=== PATIENT | male | born 1965 | race Two or more races ===

== ENCOUNTER → 2017-09-03 | Day surgery (SDC) | payer OTHER ==
[~2017-09-03] MED LIST: PROPOFOL 40 ML IV
[2017-09-03] MEDS: IV RINGERS,LACTATED 1000ML 1,000 ML IV (10:05)
== END | disposition home or self-care (01) ==
LOC: SURG 09:26
DX: Z12.11 Encounter for screening for malignant neoplasm of colon (principal); D12.8 Benign neoplasm of rectum; K64.0 First degree hemorrhoids; K62.4 Stenosis of anus and rectum
CPT/HCPCS: 45380; 88305; J2704